=== PATIENT | female | born 1975 | race Caucasian/White ===

== ENCOUNTER 2016-12-29 19:20 | Emergency (ER) | payer MEDICAID ==
[~2016-12-29] VITALS: Ht 165.1 cm; Wt 81.5 kg
[~2016-12-29 19:20] MED LIST: IBUP-1542 PO; MEDR10TA2 PO
[2016-12-29 19:25] VITALS: Ht 165.1 cm; Wt 81.5 kg
[2016-12-29] MEDS ORDERED: KETOROLAC 60 MG INJ IM STA (19:46)
--- NOTE | 2016-12-29 20:14 | RADRPT ---
PROCEDURE: US Lower extremity Venous. CLINICAL INDICATION: Left leg swelling TECHNIQUE: Multiple sonographic images of the left lower extremity deep venous system was obtained utilizing grayscale, color-flow, compressive sonography and doppler imaging with augmentation. The images were reviewed on a PACS workstation. COMPARISON: None. FINDINGS: There is normal compressibility and flow within the left common femoral, superficial femoral, soil science professor ior tibial, peroneal and popliteal veins. RPTAT: AA IMPRESSION: No sonographic evidence for deep venous thrombosis. .Moises Barfield MD, MD Date Time Electronically viewed and signed by .Moises Barfield MD, on 12/29/2016 20:14 .S/
[2016-12-29] MEDS ORDERED: IBUP-1542 PO (21:51)
[2016-12-29] MEDS ORDERED: HYDROCODONE/APAP (5/325) TAB PO ONE (22:00)
[2016-12-29 22:10] VITALS: BP 162/78; PULSE 64; RESP 16
--- NOTE | 2016-12-29 23:02 | ERD ---
ER Documentation Chief Complaint Date/Time DATE: 12/29/16 TIME: 22:59 Chief Complaint pain on left thigh x 4 days. denies injury HPI 41-year-old female with no significant past medical history presents to the ED complaining of left anterior thigh pain that started 4 days ago. States that originally the pain derived from her back and radiated down to her buttocks and anterior leg. Describes the pain as a sharp sensation and is worse with walking. Rates the pain a 8 out of 10. Denies any chest pain, shortness of breath, abdominal pain, nausea, vomiting, trauma. States that she is ambulating without difficulty. Denies taking any control. Reports that her last cholecystectomy was 3 years ago. Denies any malignancy. Denies any recent traveling or leg swelling. ROS All systems reviewed and are negative except as per history of present illness. Medications Home Meds Active Scripts Ibuprofen* (Motrin*) 600 Mg Tab, 600 MG PO Q6H Y for PAIN AND OR ELEVATED TEMP, #30 TAB Prov:SCHUYLER DACOSTA PA-C 12/29/16 Medroxyprogesterone Acetate* (Provera*) 10 Mg Tablet, 10 MG PO DAILY for 5 Days , TAB Prov:CELIO ZAVALA MD 03/08/16 Ibuprofen* (Motrin*) 600 Mg Tab, 600 MG PO Q6, #30 TAB Prov:BOLIVAR RUBIO PA-C 04/26/15 Allergies Allergies: Coded Allergies: No Known Allergy (Unverified , 12/29/16) PMhx/Soc History of Surgery: Yes (GALLBLADDER; TUBAL LIGATION.) Anesthesia Reaction: No Hx Neurological Disorder: No Hx Respiratory Disorders: No Hx Cardiac Disorders: No Hx Psychiatric Problems: No Hx Miscellaneous Medical Probl: No (DENIES MEDICAL HX.) Hx Alcohol Use: No Hx Substance Use: No Hx Tobacco Use: No Smoking Status: Never smoker Physical Exam Vitals Vital Signs Date Time Temp Pulse Resp B/P Pulse Ox O2 Delivery O2 Flow Rate FiO2 12/29/16 22:10 64 16 162/78 100 Room Air 12/29/16 19:25 97.1 76 20 171/96 98 Physical Exam Const: [id number], well-nourished. In no acute distress. Head: Atraumatic, normocephalic Eyes: Normal Conjunctiva without injection. No purulent discharge. ENT: Normal external ear, nose. Moist oropharynx without tonsillar exudates. Non -erythematous pharynx. Uvula midline. No drooling. No trismus. Neck: No cervical midline tenderness. Full range of motion. No meningismus. No cervical lymphadenopathy. No JVD. Resp: Clear to auscultation bilaterally. No wheezing, rhonchi, rales, or crackles. No accessory muscle use. No retractions. Cardio: Regular rate and rhythm. No murmurs, rubs or gallops. Abd: Soft, nontender, non distended. Normal bowel sounds. No palpable masses. No rebound tenderness. No guarding. Negative McBurney's point. Negative psoas sign. Negative obturator sign. Skin: No petechiae or rashes Back: No midline tenderness. No CVA tenderness. Ext: No cyanosis, or edema. Tenderness to palpation of the left anterior thigh. No warmth to touch. No fluctuance or induration. No tenderness palpation of the bilateral hips, knees, ankles, feet. Neur: Awake and alert. Normal gait. Normal coordination. Psych: Normal Mood and Affect Results 24 hrs Current Medications Medications (Trade) Dose Ordered Sig/Mohan Route PRN Reason Start Time Stop Time Status Last Admin Dose Admin Ketorolac Tromethamine (Toradol) 60 mg ONCE STAT IM 12/29/16 19:46 12/29/16 19:49 DC 12/29/16 20:19 Acetaminophen/ Hydrocodone Bitart (Crystal (5/325)) 1 tab ONCE ONCE PO 12/29/16 22:00 12/29/16 22:01 DC 12/29/16 21:49 Procedures/MDM 41-year-old female with no significant past medical history presents the ED complaining of left eye pain that started 4 days ago. Patient is afebrile and nontoxic-appearing. Patient's blood pressure noted to be 171/96. Patient's blood pressure was elevated (>120/80) but appears stable without evidence of hypertension emergency or urgency. The patient was counseled about the risks of hypertension and urged to pursue outpatient monitoring and therapy within a week with their primary care physician. Low suspicion for end organ damage. Since patient did not sustain any trauma and is no longer feeling any back pain. A persistent leg pain of the left side deemed necessary for a venous ultrasound to be ordered. Patient's pain improved after 6 mg IM Toradol, Crystal here in the ED. PROCEDURE: US Lower extremity Venous. CLINICAL INDICATION: Left leg swelling TECHNIQUE: Multiple sonographic images of the left lower extremity deep venous system was obtained utilizing grayscale, color-flow, compressive sonography and doppler imaging with augmentation. The images were reviewed on a PACS workstation. COMPARISON: None. FINDINGS: There is normal compressibility and flow within the left common femoral, superficial femoral, posterior tibial, peroneal and popliteal veins. RPTAT: AA IMPRESSION: No sonographic evidence for deep venous thrombosis. Patient's pain could likely be due to possible sciatica. Patient's extremity symptoms have stabilized while they have been evaluated in the department and are appropriate for outpatient follow up. No evidence of fractures, dislocations , compartment syndrome, neurologic injury, vascular injury, open joint, open fracture, tendon laceration, septic arthritis, osteomyelitis, DVT, foreign body , or other emergent conditions. Patient is ambulating here in the ED without difficulty. Denies saddle anesthesia, numbness or tingling, urine or bowel incontinence, weakness. Low suspicion for cauda equina syndrome, cord compression, nephrolithiasis, aortic aneurysm, aortic dissection, epidural abscess, spinal hematoma, malignancy, pyelonephritis, degenerative disc disease , spinal stenosis, or other emergent conditions. Discharge medications: Ibuprofen Follow up with primary care physician in 1-2 days. Instructed patient to return to the ED sooner for any worsening symptoms. Patient's questions were answered. Patient understood and agreed with discharge plan. Patient discharged stable. Departure Diagnosis: Primary Impression: Leg pain, left Condition: Stable Patient Instructions: Possible Causes of Low Back or Leg Pain Referrals: [facility] YOU HAVE RECEIVED A MEDICAL SCREENING EXAM AND THE RESULTS INDICATE THAT YOU DO NOT HAVE A CONDITION THAT REQUIRES URGENT TREATMENT IN THE EMERGENCY DEPARTMENT. FURTHER EVALUATION AND TREATMENT OF YOUR CONDITION CAN WAIT UNTIL YOU ARE SEEN IN YOUR DOCTORS OFFICE WITHIN THE NEXT 1-2 DAYS. IT IS YOUR RESPONSIBILITY TO MAKE AN APPOINTMENT FOR FOLOW-UP CARE. IF YOU HAVE A PRIMARY DOCTOR --you should call your primary doctor and schedule an appointment IF YOU DO NOT HAVE A PRIMARY DOCTOR YOU CAN CALL OUR PHYSICIAN REFERRAL HOTLINE AT IF YOU CAN NOT AFFORD TO SEE A PHYSICIAN YOU CAN CHOSE FROM THE FOLLOWING [facility] [address] [place] [facility] [address] [facility] [address] [facility] [address] [facility] [address] [facility]. [facility]. [address] [facility]. [facility] YOU HAVE RECEIVED A MEDICAL SCREENING EXAM AND THE RESULTS INDICATE THAT YOU DO NOT HAVE A CONDITION THAT REQUIRES URGENT TREATMENT IN THE EMERGENCY DEPARTMENT. FURTHER EVALUATION AND TREATMENT OF YOUR CONDITION CAN WAIT UNTIL YOU ARE SEEN IN YOUR DOCTORS OFFICE WITHIN THE NEXT 1-2 DAYS. IT IS YOUR RESPONSIBILITY TO MAKE AN APPOINTMENT FOR FOLOW-UP CARE. IF YOU HAVE A PRIMARY DOCTOR --you should call your primary doctor and schedule and appointment IF YOU DO NOT HAVE A PRIMARY DOCTOR YOU CAN CALL OUR PHYSICIAN REFERRAL HOTLINE AT . IF YOU CAN NOT AFFORD TO SEE A PHYSICIAN YOU CAN CHOSE FROM THE FOLLOWING [facility] INSTITUTIONS: [facility] [address] [place] [address] [facility] [address] [place] [address] [facility] [address] [place] [address] [facility] Urgent Care 7 a.m.- 11 p.m. Every Day of the Week NO APPOINTMENT OR AUTHORIZATION NEEDED [facility] Hours: Mon-Fri 9:00 AM - 5:00 PM Additional Instructions: Llame al doctor MAANA y neri kole [place] PARA DENTRO DE 1-2 DONALD.Dgale a la secretaria que nosotros le instruimos hacer esta everett.Avise o llame si felder condicin se empeora antes de la everett. Regresa aqui si peor o no mejor. SCHUYLER DACOSTA PA-C Dec 29, 2016 23:02
== END 2016-12-29 22:12 | disposition home or self-care (01) ==
LOC: FTE 19:20
DX: M79.652 Pain in left thigh (principal)
CPT/HCPCS: 93971; 96372; J1885; Z7502; Z7610

== ENCOUNTER 2017-07-19 07:26 | Emergency (ER) | payer MEDICAID ==
[~2017-07-19] VITALS: Ht 157.5 cm; Wt 82.0 kg
[2017-07-19 07:29] VITALS: Ht 157.5 cm; Wt 82.0 kg
[2017-07-19] MEDS ORDERED: HYDR-906 PO (07:44)
[2017-07-19] MEDS ORDERED: MED4DP PO (07:44)
[2017-07-19] MEDS ORDERED: NAPR-260 PO (07:44)
--- NOTE | 2017-07-19 08:03 | ERD ---
ER Documentation Chief Complaint Date/Time DATE: 07/19/17 TIME: 07:57 Chief Complaint Patient complains of right facial numbness HPI 41-year-old female complaining of left sciatic leg pain, left arm pain, and left facial pain. Patient denies weakness. Patient denies headaches. Symptoms have been going on for the last 6 months. Has only taken ibuprofen for pain. Denies any acute injuries or falls. Denies visual changes. Denies dizziness. Denies vomiting. States she has back pain and feels that the pain radiates from her back. ROS All systems reviewed and are negative except as per history of present illness. Medications Home Meds Active Scripts Naproxen* (Naprosyn*) 500 Mg Tablet, 500 MG PO BID Y for PAIN AND/OR INFLAMMATION, #30 TAB Prov:BOLIVAR RUBIO PA-C 07/19/17 Methylprednisolone* (Medrol* DOSE PACK) 4 Mg/Dose-Pack Tab.ds.pk, 4 MG PO . DIRECTED, #1 PACKET Prov:BOLIVAR RUBIO PA-C 07/19/17 Hydrocodone/Acetaminophen (Roscoe 5-325 Tablet) 1 Each Tablet, 1 TAB PO Q6H Y for PAIN, #7 TAB Prov:BOLIVAR RUBIO PA-C 07/19/17 Ibuprofen* (Motrin*) 600 Mg Tab, 600 MG PO Q6H Y for PAIN AND OR ELEVATED TEMP, #30 TAB Prov:SCHUYLER DACOSTA PA-C 12/29/16 Medroxyprogesterone Acetate* (Provera*) 10 Mg Tablet, 10 MG PO DAILY for 5 Days , TAB Prov:CELIO ZAVALA MD 03/08/16 Ibuprofen* (Motrin*) 600 Mg Tab, 600 MG PO Q6, #30 TAB Prov:BOLIVAR RUBIO PA-C 04/26/15 Allergies Allergies: Coded Allergies: No Known Allergy (Unverified , 12/29/16) PMhx/Soc Medical and Surgical Hx: pt denies Medical Hx History of Surgery: Yes (GALLBLADDER; TUBAL LIGATION.) Anesthesia Reaction: No Hx Neurological Disorder: No Hx Respiratory Disorders: No Hx Cardiac Disorders: No Hx Psychiatric Problems: No Hx Miscellaneous Medical Probl: No (DENIES MEDICAL HX.) Hx Alcohol Use: Yes (Occ) Hx Substance Use: No Hx Tobacco Use: No Physical Exam Vitals Vital Signs Date Time Temp Pulse Resp B/P Pulse Ox O2 Delivery O2 Flow Rate FiO2 07/19/17 07:29 98.4 84 20 166/72 98 Physical Exam GENERAL: The patient is well-appearing, well-nourished, in no acute distress CHEST: Clear to auscultation bilaterally. There are no rales, wheezes or rhonchi. HEART: Regular rate and rhythm. No murmurs, clicks, rubs or gallops. No S3 or S4. EXTREMITIES: Equal pulses bilaterally. There is no peripheral clubbing, cyanosis or edema. No focal swelling or erythema. Full range of motion. Grossly neurovascularly intact. NEUROLOGIC: Alert and oriented. Cranial nerves II through XII intact. Motor strength in all 4 extremities with 5 out of 5 strength. Sensation grossly intact. Normal speech and gait. Babinski negative. DTR 2+ throughout. Normal finger to nose exam. SKIN: There is no apparent rash or petechiae. The skin is warm and dry. BACK: Mild TTP over paraspinous muscles Procedures/MDM MDM: 41-year-old female complaining of left-sided body pain. Patient's pain is likely associated with nerve impingement and radicular pain. Patient's neuro exam and extremity exam is within normal limits and her strength is within normal limits. Patient does not have any obvious deficits on facial nerve exam. I have low suspicion for Frank's palsy or stroke. I have low suspicion for intracranial hemorrhage or mass-effect. Patient's exam is non-concerning. Is told to follow-up with primary care within 1-2 days for close evaluation. Patient is told to return to the ER if symptoms change or worsen. All questions answered at discharge. Patient will be given medication to help alleviate pain and swelling. Departure Diagnosis: Primary Impression: Cervical radicular pain Condition: Stable Patient Instructions: Radiculopathy, Cervical Additional Instructions: FOLLOW UP WITH YOUR PRIMARY CARE PHYSICIAN TOMORROW.Return to this facility if you are not improving as expected. BOLIVAR RUBIO PA-C Jul 19, 2017 08:03
== END 2017-07-19 08:10 | disposition home or self-care (01) ==
LOC: FTE 07:26
DX: M54.12 Radiculopathy, cervical region (principal)
CPT/HCPCS: 99284

== ENCOUNTER 2017-10-02 08:06 | Emergency (ER) | payer MEDICAID ==
[~2017-10-02] VITALS: Ht 157.5 cm; Wt 80.9 kg
[~2017-10-02 08:06] MED LIST changes: +HYDR-906 PO; +MED4DP PO; +NAPR-260 PO
[2017-10-02 08:07] VITALS: Ht 157.5 cm; Wt 80.9 kg
--- NOTE | 2017-10-02 10:06 | ERD ---
ER Documentation Chief Complaint Chief Complaint cough, sore throat HPI 41-year-old female presents with a chief complaint of dry cough and pharyngitis 3-4 days. Has not taken any medications to relieve symptoms. No sick contacts. Vaccination status up-to-date. No recent travel. Patient denies fever, sweats, chills, rigors, hemoptysis, breathlessness, dyspnea, chest pain, recent unintentional weight loss, drug use, headache, or change in voice. Patient has no other complaints describes no other associated manifestations. ROS All systems reviewed and are negative except as per history of present illness. Medications Home Meds Active Scripts Naproxen* (Naprosyn*) 500 Mg Tablet, 500 MG PO BID Y for PAIN AND/OR INFLAMMATION, #30 TAB Prov:BOLIVAR RUBIO PA-C 07/19/17 Methylprednisolone* (Medrol* DOSE PACK) 4 Mg/Dose-Pack Tab.ds.pk, 4 MG PO . DIRECTED, #1 PACKET Prov:BOLIVAR RUBIO PA-C 07/19/17 Hydrocodone/Acetaminophen (Volga 5-325 Tablet) 1 Each Tablet, 1 TAB PO Q6H Y for PAIN, #7 TAB Prov:BOLIVAR RUBIO PA-C 07/19/17 Ibuprofen* (Motrin*) 600 Mg Tab, 600 MG PO Q6H Y for PAIN AND OR ELEVATED TEMP, #30 TAB Prov:SCHUYLER DACOSTA PA-C 12/29/16 Medroxyprogesterone Acetate* (Provera*) 10 Mg Tablet, 10 MG PO DAILY for 5 Days , TAB Prov:CELIO ZAVALA MD 03/08/16 Ibuprofen* (Motrin*) 600 Mg Tab, 600 MG PO Q6, #30 TAB Prov:BOLIVAR RUBIO PA-C 04/26/15 Allergies Allergies: Coded Allergies: No Known Allergy (Unverified , 10/02/17) PMhx/Soc History of Surgery: Yes (GALLBLADDER; TUBAL LIGATION.) Anesthesia Reaction: No Hx Neurological Disorder: No Hx Respiratory Disorders: No Hx Cardiac Disorders: No Hx Psychiatric Problems: No Hx Miscellaneous Medical Probl: No Hx Alcohol Use: Yes (socially) Hx Substance Use: No Hx Tobacco Use: No Smoking Status: Never smoker Physical Exam Vitals Vital Signs Date Time Temp Pulse Resp B/P Pulse Ox O2 Delivery O2 Flow Rate FiO2 10/02/17 11:13 72 19 124/64 100 Room Air 10/02/17 08:07 97.8 88 18 150/73 100 Physical Exam Const: Well-appearing 41-year-old female in NAD. Pulm: No dyspnea, stridor, tripoding or drooling. Good air movement. Clear to auscultation in all lung rain bilaterally. Neck: No cervical lymphadenopathy, masses or goiter palpated. Trachea midline. Supple ~ No meningismus. Auscultation reviled good air movement and no bruits. ENT: Erythematous oropharynx. No [place] visualized. No uvular deviation. Cardio: Regular rate and rhythm; No murmurs, gallops or rubs auscultated. No JVD grossly observed. Radial and posterior tibial pulses 2+ bilaterally. No cyanosis. Capillary refill less than 2 seconds. Oral: No oral edema visualized. Mucous membranes moist and pink. Head: Normocephalic, Atraumatic. Eyes: Non-injected; No scleral erythema, discharge or foreign body. EOMI and JENNI bilaterally. Ears: Normal External Ears, EACs clear, TM normal bilaterally without erythema. MS: Normal motor strength, normal tone with gross examination. Skin: No petechiae or rashes. Ext: No cyanosis, edema. Normal movement of all extremities grossly observed. Neur: Awake, alert and oriented. Psych: Normal Mood and Affect. Procedures/MDM Patient is being worked up and evaluated for a chief complaint of cough as described in the history. Physical exam was remarkable only for erythematous oropharynx. At this time I have little suspicion for pneumonia, pneumothorax, foreign body, asthma, or pulmonary embolism. X-ray obtained and read as unremarkable by the radiologist. The current most likely diagnosis is viral URI versus cough of unknown etiology. The treatment plan will thus include supportive treatment. I have spoken with them regarding their condition and future management. They have verbally responded that they understand and agree to their status and treatment plan. I have spoke with my attending who agrees with the assessment and plan. The patients vitals are stable, and their current condition is appropriate for discharge. The patient will be given discharge instructions with return precautions. Departure Diagnosis: Primary Impression: Upper respiratory infection URI type: unspecified URI Qualified Code: J06.9 - Upper respiratory tract infection, unspecified type Condition: Stable Additional Instructions: Razia un seguimiento con felder PCP dentro de los prximos 1-3 gilmore para kole evaluaci n ms completa y kole posible derivacin a un especialista. Devuelva el departamento de emergencia inmediatamente si los sntomas empeoran o cambian. Si tiene alguna pregunta con respecto a los medicamentos, consulte con felder farmac utico o con nosotros antes de salir. Si se producen reacciones adversas mientras joel shannon medicamentos, suspenda el tratamiento y regrese inmediatamente al servicio de urgencias. [place] shannon medicamentos segn las indicaciones y complete el curso completo del tratamiento. CHUCK العراقي PA-C Oct 02, 2017 10:06
--- NOTE | 2017-10-02 10:24 | RADRPT ---
PROCEDURE: XR Chest. CLINICAL INDICATION: Cough TECHNIQUE: Frontal chest x-ray was obtained. COMPARISON: Chest x-ray April 15, 2013 FINDINGS: Heart is not enlarged. Mediastinum is not widened. No hilar masses seen. Lungs are clear of any infi ltrates. There is no effusion or pneumothorax. IMPRESSION: No evidence for active cardiopulmonary disease. .Kanu Quinones MD, MD Date Time Electronically viewed and signed by .Kanu Quinones MD, on 10/02/2017 10:23 .A/
[2017-10-02 11:13] VITALS: BP 124/64; PULSE 72; RESP 19
== END 2017-10-02 11:15 | disposition home or self-care (01) ==
LOC: FTE 08:06
DX: J06.9 Acute upper respiratory infection, unspecified (principal)
CPT/HCPCS: 71010; Z7502

== ENCOUNTER 2017-11-25 09:18 | Emergency (ER) | END 2017-11-25 11:03 | disposition home or self-care (01) ==

== ENCOUNTER 2017-12-01 08:56 | Emergency (ER) | END 2017-12-01 12:55 | disposition home or self-care (01) ==

== ENCOUNTER 2018-06-26 14:09 | Emergency (ER) | END 2018-06-26 16:26 | disposition home or self-care (01) ==